=== PATIENT | male | born 1970 ===

== ENCOUNTER 2017-11-02 06:34 | Emergency (ER) | payer SELFPAY ==
[2017-11-02 06:34] VITALS: BMI 23.3
[2017-11-02 06:58] VITALS: BP 112/80; PULSE 90; RESP 18; TEMP 98; O2SAT 98
[2017-11-02] MEDS ORDERED: Naproxen 550 mg Tab PO STA (07:05)
--- NOTE | 2017-11-02 07:09 | ED PDOC ---
Arrival/HPI - General Chief Complaint: Lower Extremity Problem/Injury Time Seen by Provider: 11/02/17 07:00 Historian: Patient - History of Present Illness Narrative History of Present Illness (Text): 11/02/17 07:05 47 year old male, whose PMH includes knee sugery in 2012, who presents to the emergency department complaining of left knee pain since 3 years. Patient denies any trauma, falls, shortness of breath, fever or other complaints. Patient is also requesting a work note. Time/Duration: Other (3 years ) Symptom Onset: Gradual Symptom Course: Unchanged Context: Home Past Medical History - Provider Review Nursing Documentation Reviewed: Yes - Infectious Disease Hx of Infectious Diseases: None - Tetanus Immunization Tetanus Immunization: Unknown - Past Medical History Past Medical History: No Previous - Cardiac Hx Cardiac Disorders: No - Pulmonary Hx Respiratory Disorders: No - Neurological Hx Neurological Disorder: No - HEENT Hx HEENT Disorder: No - Renal Hx Renal Disorder: No - Endocrine/Metabolic Hx Endocrine Disorders: No - Hematological/Oncological Hx Blood Disorders: No - Integumentary Hx Dermatological Disorder: No - Musculoskeletal/Rheumatological Hx Musculoskeletal Disorders: Yes Other/Comment: right knee sx - Gastrointestinal Hx Gastrointestinal Disorders: Yes Other/Comment: hernia repair - Genitourinary/Gynecological Hx Genitourinary Disorders: No - Psychiatric Hx Psychophysiologic Disorder: No Hx Anxiety: No Hx Bipolar Disorder: No Hx Depression: No Hx Emotional Abuse: No Hx Hallucinations: No Hx Panic Disorder: No Hx Post Traumatic Stress Disorder: No Hx Physical Abuse: No Hx Schizophrenia: No Hx Sexual Abuse: No Hx Substance Use: No - Surgical History Hx Orthopedic Surgery: Yes (knee) Other/Comment: Hernia Surgery - Anesthesia Hx Anesthesia: Yes Hx Anesthesia Reactions: No Hx Malignant Hyperthermia: No - Suicidal Assessment Feels Threatened In Home Enviroment: No Family/Social History - Physician Review Nursing Documentation Reviewed: Yes Family/Social History: Unknown Family HX Smoking Status: Light Smoker < 10 Cigarettes Daily Hx Alcohol Use: Yes Frequency of alcohol use: Socially Hx Substance Use: No Hx Substance Use Treatment: No Allergies/Home Meds Allergies/Adverse Reactions: Allergies No Known Allergies Allergy (Verified 11/02/17 06:54) Review of Systems - Physician Review All systems were reviewed & negative as marked: Yes - Review of Systems Constitutional: absent: Fevers Respiratory: absent: SOB Musculoskeletal: Other (left knee pain ) Physical Exam Vital Signs Reviewed: Yes Vital Signs Temp Pulse Resp BP Pulse Ox 11/02/17 06:54 98.0 F 90 18 112/80 98 Temperature: Afebrile Blood Pressure: Normal Pulse: Regular Respiratory Rate: Normal Appearance: Positive for: Well-Appearing, Non-Toxic, Comfortable Pain Distress: None Mental Status: Positive for: Alert and Oriented X 3 - Systems Exam Head: Present: Atraumatic, Normocephalic Pupils: Present: PERRL Extroacular Muscles: Present: EOMI Conjunctiva: Present: Normal Lower Extremity: Present: Normal Inspection, NORMAL PULSES, Normal ROM, Neurovascularly Intact, Capillary Refill < 2 s. No: Edema, Cyanosis, Tenderness , Swelling, Erythema, Deformity, Temperature Abnormalties Neurological: Present: GCS=15, CN II-XII Intact, Speech Normal Skin: Present: Warm, Dry, Normal Color. No: Rashes Psychiatric: Present: Alert, Oriented x 3, Normal Insight, Normal Concentration Medical Decision Making ED Course and Treatment: 11/02/17 Impression: 47 year old male with unremarkable physical exam, complaining of left knee pain since 3 years ago with PMH of knee surgery. Plan: -- Anaprox -- Reassess and disposition Progress Notes: - Medication Orders Current Medication Orders: Discontinued Medications Naproxen (Anaprox Ds) 550 mg PO STAT STA Stop: 11/02/17 07:06 Last Admin: 11/02/17 07:21 Dose: 550 mg Re-Assess: JANICE Pain Assessment Document 11/02/17 07:49 [facility] (Rec: 11/02/17 07:49 [facility] [id number]) Pain Reassessment Is this a pain reassessment? No - Scribe Statement The provider has reviewed the documentation as recorded by the Scribe Jessica Cartagena Provider Scribe Attestation: All medical record entries made by the Scribe were at my direction and personally dictated by me. I have reviewed the chart and agree that the record accurately reflects my personal performance of the history, physical exam, medical decision making, and the department course for this patient. I have also personally directed, reviewed, and agree with the discharge instructions and disposition. Disposition/Present on Arrival - Present on Arrival Any Indicators Present on Arrival: No History of DVT/PE: No History of Uncontrolled Diabetes: No Urinary Catheter: No History of Decub. Ulcer: No History Surgical Site Infection Following: None - Disposition Have Diagnosis and Disposition been Completed?: Yes Diagnosis: Knee pain Disposition: HOME/ ROUTINE Disposition Time: 07:00 Condition: STABLE Discharge Instructions (ExitCare): Chronic Knee Pain Additional Instructions: return to er with worsening symptoms or concerns. please see specialist Prescriptions: Naproxen [Naprosyn] 500 mg PO BID PRN #14 tablet PRN Reason: Pain, Mild (1-3) Referrals: Con Caldwell MD [Medical Doctor] - Follow up with primary Forms: [employer] ([place]), WORK NOTE
== END 2017-11-02 07:49 | disposition home or self-care (01) ==
LOC: ED 06:34
DX: M25.562 Pain in left knee (principal)

== ENCOUNTER 2018-01-12 06:45 | Emergency (ER) | payer OTHER ==
[2018-01-12 06:45] VITALS: BMI 23.3
--- NOTE | 2018-01-12 07:37 | ED PDOC ---
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 ros (+) old hairline frcture in rt great toe in the past , denies any other concomitant joint pains. 01/12/18 07:34 Symptom Onset: Gradual Symptom Course: Improving Quality: Aching, Throbbing Past Medical History - Provider Review Nursing Documentation Reviewed: Yes - Infectious Disease Hx of Infectious Diseases: None - Tetanus Immunization Tetanus Immunization: Unknown - Past Medical History Past Medical History: No Previous - Cardiac Hx Cardiac Disorders: No - Pulmonary Hx Respiratory Disorders: No - Neurological Hx Neurological Disorder: No - HEENT Hx HEENT Disorder: No - Renal Hx Renal Disorder: No - Endocrine/Metabolic Hx Endocrine Disorders: No - Hematological/Oncological Hx Blood Disorders: No - Integumentary Hx Dermatological Disorder: No - Musculoskeletal/Rheumatological Hx Musculoskeletal Disorders: Yes Other/Comment: right knee sx - Gastrointestinal Hx Gastrointestinal Disorders: Yes Other/Comment: hernia repair - Genitourinary/Gynecological Hx Genitourinary Disorders: No - Psychiatric Hx Psychophysiologic Disorder: No Hx Anxiety: No Hx Bipolar Disorder: No Hx Depression: No Hx Emotional Abuse: No Hx Hallucinations: No Hx Panic Disorder: No Hx Post Traumatic Stress Disorder: No Hx Physical Abuse: No Hx Schizophrenia: No Hx Sexual Abuse: No Hx Substance Use: No - Surgical History Hx Orthopedic Surgery: Yes (knee) Other/Comment: Hernia Surgery - Anesthesia Hx Anesthesia: Yes Hx Anesthesia Reactions: No Hx Malignant Hyperthermia: No - Suicidal Assessment Feels Threatened In Home Enviroment: No Family/Social History - Physician Review Nursing Documentation Reviewed: Yes Family/Social History: No Known Family HX Smoking Status: Light Smoker < 10 Cigarettes Daily Hx Alcohol Use: Yes Hx Substance Use: No Hx Substance Use Treatment: No Allergies/Home Meds Allergies/Adverse Reactions: Allergies No Known Allergies Allergy (Verified 01/12/18 06:53) Review of Systems - Physician Review All systems were reviewed & negative as marked: Yes - Review of Systems Constitutional: Normal Eyes: Normal ENT: Normal Respiratory: Normal Cardiovascular: Normal Gastrointestinal: Normal Genitourinary Male: Normal Musculoskeletal: Arthralgias Skin: Normal Neurological: Normal Endocrine: Normal Hemo/Lymphatic: Normal Psychiatric: Normal Physical Exam Vital Signs Reviewed: Yes Vital Signs Temp Pulse Resp BP Pulse Ox 01/12/18 09:04 88 18 130/76 99 01/12/18 06:53 97.8 F 100 H 19 142/76 100 Temperature: Afebrile Blood Pressure: Normal Pulse: Regular Respiratory Rate: Normal Appearance: Positive for: Well-Appearing, Non-Toxic, Comfortable Pain Distress: None Mental Status: Positive for: Alert and Oriented X 3 - Systems Exam Head: Present: Atraumatic, Normocephalic Pupils: Present: PERRL Extroacular Muscles: Present: EOMI Conjunctiva: Present: Normal Mouth: Present: Moist Mucous Membranes Neck: Present: Normal Range of Motion Respiratory/Chest: Present: Clear to Auscultation, Good Air Exchange. No: Respiratory Distress, Accessory Muscle Use Cardiovascular: Present: Regular Rate and Rhythm, Normal S1, S2. No: Murmurs Abdomen: No: Tenderness, Distention, Peritoneal Signs Back: Present: Normal Inspection Upper Extremity: Present: Normal Inspection. No: Cyanosis, Edema Lower Extremity: Present: Other (rt great toe bunion, ttp , no relative calor, able to dorsi/plantar flex w/ full ROM. ). No: Edema Neurological: Present: GCS=15, CN II-XII Intact, Speech Normal, Motor Func Grossly Intact, Normal Sensory Function, Normal Cerebellar Funct, Norm Deep Tendon Reflexes, Gait Normal, Memory Normal, Normal 2Pt Descrimination Skin: Present: Warm, Dry, Normal Color. No: Rashes Psychiatric: Present: Alert, Oriented x 3, Normal Insight, Normal Concentration Medical Decision Making ED Course and Treatment: 47 y/o male p/w rt great toe x 2 months , reptitive use injury/sprain vs gout. (uric acid low suggestive of the former but nonspecific). xray : healed old frcature well calloused (old chronic fracture ) presump straight sole shoe prsunmptive gout treatment podiatry f/u discharge on indomethacin , steroid pulse course 01/12/18 09:20 - Lab Interpretations Lab Results: Lab Results 01/12/18 07:32: Uric Acid 3.3 L - RAD Interpretation Radiology Orders: 01/12/18 07:28 FOOT RIGHT GREAT TOE ROUTINE [RAD] Stat - Medication Orders Current Medication Orders: Discontinued Medications Famotidine (Pepcid) 20 mg PO STAT STA Stop: 01/12/18 07:30 Last Admin: 01/12/18 07:43 Dose: 20 mg Indomethacin (Indocin) 25 mg PO STAT STA Stop: 01/12/18 07:30 Last Admin: 01/12/18 07:57 Dose: 25 mg MAR Pain Assessment Document 01/12/18 07:57 [facility] (Rec: 01/12/18 07:58 [facility] [id number]) Pain Reassessment Is this a pain reassessment? No Sleep Is patient sleeping during reassessment? No Presence of Pain Presence of Pain Yes Pain Scale Used Pain Scale Used Numeric Location Left, Right or Bilateral Right Pain Location Body Site Foot Description Intensity of Pain at present 3 Prednisone (Prednisone Tab) 60 mg PO STAT ONE Stop: 01/12/18 07:31 Last Admin: 01/12/18 07:43 Dose: 60 mg Disposition/Present on Arrival - Present on Arrival Any Indicators Present on Arrival: No History of DVT/PE: No History of Uncontrolled Diabetes: No Urinary Catheter: No History of Decub. Ulcer: No History Surgical Site Infection Following: None - Disposition Have Diagnosis and Disposition been Completed?: Yes Diagnosis: Toe pain, right Disposition: HOME/ ROUTINE Disposition Time: 09:25 Patient Plan: Discharge Condition: GOOD Print Language: [place] Additional Instructions: You have a visualized old fracture in your right great toe that is well healed. You also have a bunion in that rt great toe . It is rather unclear at this time if you have a toe sprain vs newly exacerbated arthritis from the old fracture or mild gout attack. Take the pain medicine as ordered. Follow up with podiatry for further evaluatoin rest /ice/compression wrap and elevation can also help with pain ., . Prescriptions: Indomethacin [Indocin] 25 mg PO Q8 PRN #40 cap PRN Reason: Pain, Moderate (4-7) Prednisone [Deltasone] 40 mg PO DAILY #8 tablet Referrals: Vadim Cantu DPM [Staff Provider] - Follow up with primary Forms: [employer] (Setswana), WORK NOTE
[2018-01-12 09:04] VITALS: BP 130/76; PULSE 88; RESP 18; O2SAT 99
--- NOTE | 2018-01-12 09:30 | RAD ---
PROCEDURE: Right Foot Radiographs. HISTORY: rt great toe mtcp pain COMPARISON: None. FINDINGS: BONES: Normal. No fracture. JOINTS: Normal. SOFT TISSUES: Normal. OTHER FINDINGS: None. IMPRESSION: Normal right foot radiographs.
[2018-01-12 09:43] VITALS: TEMP 98
== END 2018-01-12 09:49 | disposition home or self-care (01) ==
LOC: ED 06:45
DX: M79.674 Pain in right toe(s) (principal)

== ENCOUNTER 2018-05-10 08:19 | Emergency (ER) | payer OTHER ==
[2018-05-10 08:20] VITALS: BMI 23.3
[2018-05-10 10:02] VITALS: TEMP 98.5
[2018-05-10 10:03] VITALS: RESP 18; O2SAT 100
--- NOTE | 2018-05-10 10:05 | ED PDOC ---
Arrival/HPI - History of Present Illness Narrative History of Present Illness (Text): 05/10/18 09:59 Pt is a 48 yo M with no significant pmhx who presents to the ED for R foot pain. He states that on Monday 05/07 he began to notice R foot pain located at the base of his foot near the metatarsal-phalangeal joints of the 2,3 and 4th digits. He states that he pain would get worse with extension of the toes especially while walking. He states that since Thursday the pain has been improving and is currently rated as a 5/10 in intensity. He states that a nurse told him he might have gout in the past but was never formally diagnosed. He currently denies any trauma to the area and states that the pain has improved enough for him to walk on his feet, with tolerable pain. Pmhx: Denies Pshx: Hernia 2003, L Knee ACL repair Meds: Denies All: NKDA Social: 2 cig/day, social etoh use and denies any illcit drug use Fam Hx: Denies <Alexia Quintero - Last Filed: 05/10/18 11:07> <David Pineda - Last Filed: 05/10/18 12:15> - General Chief Complaint: Lower Extremity Problem/Injury Time Seen by Provider: 05/10/18 08:25 Past Medical History - Provider Review Nursing Documentation Reviewed: Yes - Infectious Disease Hx of Infectious Diseases: None - Tetanus Immunization Tetanus Immunization: Unknown - Past Medical History Past Medical History: No Previous - Cardiac Hx Cardiac Disorders: No - Pulmonary Hx Respiratory Disorders: No - Neurological Hx Neurological Disorder: No - HEENT Hx HEENT Disorder: No - Renal Hx Renal Disorder: No - Endocrine/Metabolic Hx Endocrine Disorders: No - Hematological/Oncological Hx Blood Disorders: No - Integumentary Hx Dermatological Disorder: No - Musculoskeletal/Rheumatological Hx Musculoskeletal Disorders: Yes Hx Gout: Yes Other/Comment: right knee sx - Gastrointestinal Hx Gastrointestinal Disorders: Yes Other/Comment: hernia repair - Genitourinary/Gynecological Hx Genitourinary Disorders: No - Psychiatric Hx Psychophysiologic Disorder: No Hx Anxiety: No Hx Bipolar Disorder: No Hx Depression: No Hx Emotional Abuse: No Hx Hallucinations: No Hx Panic Disorder: No Hx Post Traumatic Stress Disorder: No Hx Physical Abuse: No Hx Schizophrenia: No Hx Sexual Abuse: No Hx Substance Use: No - Surgical History Hx Orthopedic Surgery: Yes (knee) Other/Comment: Hernia Surgery - Anesthesia Hx Anesthesia: Yes Hx Anesthesia Reactions: No Hx Malignant Hyperthermia: No - Suicidal Assessment Feels Threatened In Home Enviroment: No <Tatianna Quinteromad - Last Filed: 05/10/18 11:07> Family/Social History - Physician Review Nursing Documentation Reviewed: Yes Family/Social History: No Known Family HX Smoking Status: Light Smoker < 10 Cigarettes Daily Hx Alcohol Use: Yes Frequency of alcohol use: Socially Hx Substance Use: No Hx Substance Use Treatment: No <Leon,Hale - Last Filed: 05/10/18 11:07> Allergies/Home Meds <LeonAlexia gtz - Last Filed: 05/10/18 11:07> <David Pineda - Last Filed: 05/10/18 12:15> Allergies/Adverse Reactions: Allergies No Known Allergies Allergy (Verified 05/10/18 09:11) Home Medications: Home Meds Medication Instructions Recorded Confirmed No Known Home Med 05/10/18 05/10/18 Review of Systems - Physician Review All systems were reviewed & negative as marked: Yes - Review of Systems Constitutional: absent: Fevers Respiratory: absent: SOB, Cough Cardiovascular: absent: Chest Pain Gastrointestinal: absent: Abdominal Pain, Nausea, Vomiting Musculoskeletal: Arthralgias (admits to pain in the R 2, 3 and 4th metatarsal- phalangeal joints worse with extension.). absent: Back Pain, Neck Pain Neurological: absent: Headache <LeonRayoHale - Last Filed: 05/10/18 11:07> Physical Exam Appearance: Positive for: Well-Appearing, Non-Toxic Pain Distress: Mild Mental Status: Positive for: Alert and Oriented X 3 - Systems Exam Head: Present: Atraumatic, Normocephalic Pupils: Present: PERRL Extroacular Muscles: Present: EOMI Conjunctiva: Present: Normal Mouth: Present: Moist Mucous Membranes Respiratory/Chest: Present: Clear to Auscultation, Good Air Exchange. No: Respiratory Distress, Accessory Muscle Use, Wheezes, Rales, Rhonchi Cardiovascular: Present: Regular Rate and Rhythm, Normal S1, S2, Rub, Gallop. No: Murmurs Abdomen: Present: Normal Bowel Sounds. No: Tenderness, Distention, Peritoneal Signs, Rebound, Guarding Back: Present: Normal Inspection. No: CVA Tenderness, Midline Tenderness, Paraspinal Tenderness Lower Extremity: Present: Normal Inspection, Tenderness (with palpation of the plantar aspect of the metatarsal-phalangeal joints of the R foot and extension of the L 2nd, 3rd and 4th digits. Active and passive ROM are intact. No ankle or calcaneal tenderness upon palpation. Ankle ROM is intact.), Neurovascularly Intact, Capillary Refill < 2 s. No: Edema, CALF TENDERNESS, Justice's Sign, Swelling, Erythema, Deformity, Temperature Abnormalties Neurological: Present: GCS=15, Speech Normal Skin: Present: Warm, Dry, Normal Color. No: Rashes Psychiatric: Present: Alert, Oriented x 3, Normal Insight, Normal Concentration, Normal Affect, Normal Mood <Alexia Quintero - Last Filed: 05/10/18 11:07> Vital Signs Temp Pulse Resp BP Pulse Ox 05/10/18 08:20 98.5 F 73 18 111/82 100 - Systems Exam Lower Extremity: Present: Tenderness <David Pineda - Last Filed: 05/10/18 12:15> Medical Decision Making ED Course and Treatment: 05/10/18 10:10 Pt is a 48 yo M with no significant pmhx who presents for R foot pain. - R foot XR - Motrin - RAD Interpretation Radiology Orders: 05/10/18 09:27 FOOT RIGHT 3 VIEWS ROUTINE [RAD] Stat - Medication Orders Current Medication Orders: Discontinued Medications Ibuprofen (Motrin Tab) 600 mg PO STAT STA Stop: 05/10/18 09:29 <Alexia Quintero - Last Filed: 05/10/18 11:07> ED Course and Treatment: 05/10/18 12:08 Negative second mesa ankle and foot No warm to touch joints or cellulitis. No podagra: Unlikely gout- likely MSK pain Xray unremarkable. Pt remains in NAD with VSS. N/V intact. pain improved clear for d/c home - RAD Interpretation Radiology Orders: 05/10/18 09:27 FOOT RIGHT 3 VIEWS ROUTINE [RAD] Stat - Medication Orders Current Medication Orders: Discontinued Medications Ibuprofen (Motrin Tab) 600 mg PO STAT STA Stop: 05/10/18 09:29 Last Admin: 05/10/18 10:00 Dose: 600 mg MAR Pain/Vitals Document 05/10/18 10:00 [facility] (Rec: 05/10/18 10:00 EQ [id number]) Pain Reassessment Is This A Pain ReAssessment? No Sleep Is patient sleeping during reassessment? No Presence of Pain Presence of Pain Yes <David Pineda - Last Filed: 05/10/18 12:15> - PA / TIRE TECHNICIAN / Resident Statement MD/DO has examined the patient and agrees with the treatment plan. <David Pineda - Last Filed: 05/10/18 12:15> Disposition/Present on Arrival - Present on Arrival Any Indicators Present on Arrival: No History of DVT/PE: No History of Uncontrolled Diabetes: No Urinary Catheter: No History of Decub. Ulcer: No History Surgical Site Infection Following: None - Disposition Have Diagnosis and Disposition been Completed?: Yes <Rayo Quinterohammad - Last Filed: 05/10/18 11:07> - Disposition Disposition Time: 12:06 <David Pineda - Last Filed: 05/10/18 12:15> - Disposition Diagnosis: Foot pain Disposition: HOME/ ROUTINE Patient Problems: Current Active Problems Problem Status Onset Foot pain Acute Condition: GOOD Discharge Instructions (ExitCare): Muscle and Bone Pain (DC) Additional Instructions: KATERINA VENTURA, thank you for letting us take care of you today. Your provider was David Pineda and you were treated for right foot pain. The emergency medical care you received today was directed at your acute symptoms. If you were prescribed any medication, please fill it and take as directed. It may take several days for your symptoms to resolve. Return to the Emergency Department if your symptoms worsen, do not improve, or if you have any other problems. Please contact your doctor or call one of the physicians/clinics you have been referred to that are listed on the Patient Visit Information form that is included in your discharge packet. Bring any paperwork you were given at discharge with you along with any medications you are taking to your follow up visit. Our treatment cannot replace ongoing medical care by a primary care provider outside of the emergency department. Thank you for allowing the [facility] team to be part of your care today. If you had an X-Ray or CT scan: A Radiologist will review the ED reading if any change in treatment is needed we will contact you. If you had a blood, urine, or wound culture: It will take several days for the results, if any change in treatment is needed we will contact you. If you had an STI test: It will take 48 hours for the results. Please call after 1 week if you have not heard back. Referrals: FAMILY PROVIDER,NO [Primary Care Provider] - Follow up with primary Celestina Bello MD [Medical Doctor] - Follow up with primary Mary Linares DPM [Staff Provider] - Follow up with primary Forms: [employer] ([place]akh), WORK NOTE
--- NOTE | 2018-05-10 12:07 | RAD ---
Date of service: 05/10/2018 PROCEDURE: Right Foot Radiographs. HISTORY: R foot pain COMPARISON: None. FINDINGS: BONES: Normal. No fracture. JOINTS: Mild hallux valgus. No evidence of arthritis. Joint spaces and articular surfaces are preserved. SOFT TISSUES: Normal. OTHER FINDINGS: None. IMPRESSION: Mild hallux valgus. Otherwise unremarkable.
[2018-05-10 13:04] VITALS: BP 125/72; PULSE 85
== END 2018-05-10 12:15 | disposition home or self-care (01) ==
LOC: ED 08:19
DX: M79.671 Pain in right foot (principal)

== ENCOUNTER 2018-05-28 07:11 | Emergency (ER) | payer OTHER ==
[2018-05-28 07:11] VITALS: BMI 23.3
[2018-05-28] MEDS ORDERED: Lidocaine 5% Patch TD ONE (07:50)
--- NOTE | 2018-05-28 07:51 | ED PDOC ---
Arrival/HPI - General Chief Complaint: Hip Pain Time Seen by Provider: 05/28/18 07:22 Historian: Patient - History of Present Illness Narrative History of Present Illness (Text): 05/28/18 07:44 A 48 year old male, whose past medical history includes Lyme Disease, presents to the emergency department with a complaint of 3 day duration right hip pain. 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 The patient notes that at times the right hip pain radiates towards his groin. He reports that he has experienced these symptoms in the past, but it only lasted for about a day. The patient notes that he took Advil prior to going to bed, but is unsure if it relieved his symptoms. The patient states that the pain is exacerbated with movement and laying flat. The patient denies fevers, chills, headache, dizziness, chest pain, shortness of breath, dyspnea on exertion, cough, abdominal pain, nausea, vomiting, diarrhea, back pain, neck pain, urinary/bowel changes, or any other complaint. PMD: None Time/Duration: Other (3 Days) Symptom Onset: Sudden Symptom Course: Unchanged Activities at Onset: Rest, Light Context: Home Past Medical History - Provider Review Nursing Documentation Reviewed: Yes - Infectious Disease Hx of Infectious Diseases: None - Tetanus Immunization Tetanus Immunization: Unknown - Past Medical History Past Medical History: No Previous - Cardiac Hx Cardiac Disorders: No - Pulmonary Hx Respiratory Disorders: No - Neurological Hx Neurological Disorder: No - HEENT Hx HEENT Disorder: No - Renal Hx Renal Disorder: No - Endocrine/Metabolic Hx Endocrine Disorders: No - Hematological/Oncological Hx Blood Disorders: No - Integumentary Hx Dermatological Disorder: No - Musculoskeletal/Rheumatological Hx Musculoskeletal Disorders: Yes Hx Gout: Yes Other/Comment: right knee sx - Gastrointestinal Hx Gastrointestinal Disorders: Yes Other/Comment: hernia repair - Genitourinary/Gynecological Hx Genitourinary Disorders: No - Psychiatric Hx Psychophysiologic Disorder: No Hx Anxiety: No Hx Bipolar Disorder: No Hx Depression: No Hx Emotional Abuse: No Hx Hallucinations: No Hx Panic Disorder: No Hx Post Traumatic Stress Disorder: No Hx Physical Abuse: No Hx Schizophrenia: No Hx Sexual Abuse: No Hx Substance Use: No - Surgical History Hx Orthopedic Surgery: Yes (knee) Other/Comment: Hernia Surgery - Anesthesia Hx Anesthesia: Yes Hx Anesthesia Reactions: No Hx Malignant Hyperthermia: No - Suicidal Assessment Feels Threatened In Home Enviroment: No Family/Social History - Physician Review Nursing Documentation Reviewed: Yes Family/Social History: No Known Family HX Smoking Status: Light Smoker < 10 Cigarettes Daily Hx Alcohol Use: Yes Hx Substance Use: No Hx Substance Use Treatment: No Allergies/Home Meds Allergies/Adverse Reactions: Allergies No Known Allergies Allergy (Verified 05/10/18 09:11) Review of Systems - Physician Review All systems were reviewed & negative as marked: Yes - Review of Systems Constitutional: absent: Fevers ENT: absent: Sore Throat Respiratory: absent: SOB, Cough Cardiovascular: absent: Chest Pain Gastrointestinal: absent: Abdominal Pain, Stool Changes, Nausea, Vomiting Genitourinary Male: absent: Urinary Output Changes Musculoskeletal: Other (Right Hip Pain). absent: Back Pain, Neck Pain Neurological: absent: Headache, Dizziness Physical Exam Vital Signs Reviewed: Yes Vital Signs Temp Pulse Resp BP Pulse Ox 05/28/18 07:23 98.0 F 80 18 129/75 96 Temperature: Afebrile Blood Pressure: Normal Pulse: Regular Respiratory Rate: Normal Appearance: Positive for: Well-Appearing, Non-Toxic, Comfortable Pain Distress: None Mental Status: Positive for: Alert and Oriented X 3 - Systems Exam Head: Present: Atraumatic, Normocephalic Pupils: Present: PERRL Extroacular Muscles: Present: EOMI Conjunctiva: Present: Normal Mouth: Present: Moist Mucous Membranes Neck: Present: Normal Range of Motion Respiratory/Chest: Present: Clear to Auscultation, Good Air Exchange. No: Respiratory Distress, Accessory Muscle Use Cardiovascular: Present: Regular Rate and Rhythm, Normal S1, S2. No: Murmurs Abdomen: No: Tenderness, Distention, Peritoneal Signs Back: Present: Normal Inspection. No: CVA Tenderness, Paraspinal Tenderness, Pain with Leg Raise Upper Extremity: Present: Normal Inspection. No: Cyanosis, Edema Lower Extremity: Present: Tenderness (Pain with flexion of the right knee and extension of the right hip. ) Neurological: Present: GCS=15, CN II-XII Intact, Speech Normal Skin: Present: Warm, Dry, Normal Color. No: Rashes Psychiatric: Present: Alert, Oriented x 3, Normal Insight, Normal Concentration Medical Decision Making ED Course and Treatment: 05/28/18 07:52 Impression: A 48 year old male presents to the emergency department with a complaint of 3 day duration right hip pain. Differential Diagnosis included but are not limited to: Fracture Dislocation Sciatica Impinged Nerve Plan: --Right Hip X- Ray --Valium --Toradol --Lidoderm -- Reassess and disposition Progress Notes: 05/28/18 0900 XR of thigh unremarkable. Patient reassessed and reports improvement in symptoms after analgesia. Shared decision making with patient to follow up with an orthopedic surgeon outpatient and return protocol for the resurgence of symptoms provided. Scripts provided. Patient is stable for discharge. - Scribe Statement The provider has reviewed the documentation as recorded by the Scribe Karla Motley Provider Scribe Attestation: All medical record entries made by the Scribe were at my direction and personally dictated by me. I have reviewed the chart and agree that the record accurately reflects my personal performance of the history, physical exam, medical decision making, and the department course for this patient. I have also personally directed, reviewed, and agree with the discharge instructions and disposition. Disposition/Present on Arrival - Present on Arrival Any Indicators Present on Arrival: No History of DVT/PE: No History of Uncontrolled Diabetes: No Urinary Catheter: No History of Decub. Ulcer: No History Surgical Site Infection Following: None - Disposition Have Diagnosis and Disposition been Completed?: Yes Diagnosis: Hip pain Disposition: HOME/ ROUTINE Disposition Time: 09:08 Patient Plan: Discharge Condition: STABLE Discharge Instructions (ExitCare): Hip Pain (DC) Print Language: TANZANIAN Additional Instructions: All medical record entries made by the Scribe were at my direction and personally dictated by me. I have reviewed the chart and agree that the record accurately reflects my personal performance of the history, physical exam, medical decision making, and the department course for this patient. I have also personally directed, reviewed, and agree with the discharge instructions and disposition. Prescriptions: Cyclobenzaprine [Cyclobenzaprine HCl] 10 mg PO PRN PRN #6 tab PRN Reason: Muscle Spasm Lidocaine 5% [Lidoderm] 1 ea TD Q12H 5 Days #5 patch RX: Naproxen 500 mg PO BID 5 Days #10 tab Referrals: Queta Stafford MD [Staff Provider] - Follow up with primary [facility] [place] - Follow up with primary Celestina Bello MD [Medical Doctor] - Follow up with primary Forms: [employer] (Japanese), WORK NOTE
[2018-05-28 09:20] VITALS: BP 122/74; PULSE 81; RESP 17; TEMP 98.3; O2SAT 99
--- NOTE | 2018-05-28 09:45 | RAD ---
PROCEDURE: Right Hip and pelvis radiographs. HISTORY: hip pain COMPARISON: None. FINDINGS: BONES: Normal. No fracture. JOINTS: Normal. SOFT TISSUES: Normal. OTHER FINDINGS: None. IMPRESSION: Normal radiographs of right hip.
== END 2018-05-28 09:20 | disposition home or self-care (01) ==
LOC: ED 07:11
DX: M25.551 Pain in right hip (principal); F17.210 Nicotine dependence, cigarettes, uncomplicated
CPT/HCPCS: 73502; 96372; 99282; J1885

== ENCOUNTER 2018-07-23 07:09 | Emergency (ER) | payer OTHER ==
[2018-07-23 07:10] VITALS: BMI 23.3
[2018-07-23 07:38] VITALS: RESP 18
--- NOTE | 2018-07-23 08:21 | ED PDOC ---
Arrival/HPI - General Chief Complaint: Lower Extremity Problem/Injury Time Seen by Provider: 07/23/18 07:23 Historian: Patient - History of Present Illness Narrative History of Present Illness (Text): 07/23/18 08:18 48 y/o M, with past medical history of left knee ACL repair and left knee meniscus repair, presents to the ED complaining of worsening left knee pain since 1 week. Patient describes a shooting pain which lasts for few seconds but does not interfere with ambulation. Patient informs extensive exertion of the knee at work but denies any recent trauma or injury to the site. Patient informs taking Advil and application of pain patch with no improvement to symptoms. Patient denies any other associated somatic complaints. Patient denies any fevers, chills, headache, dizziness, chest pain, shortness of breath, dyspnea on exertion, cough, abdominal pain, nausea, vomiting, diarrhea, back pain, neck pain, discoloration of skin, lower extremity swelling or any other complaints. Time/Duration: 1 week Symptom Onset: Gradual Symptom Course: Unchanged Activities at Onset: Light Context: Home Past Medical History - Provider Review Nursing Documentation Reviewed: Yes - Infectious Disease Hx of Infectious Diseases: None - Tetanus Immunization Tetanus Immunization: Unknown - Past Medical History Past Medical History: No Previous - Cardiac Hx Cardiac Disorders: No - Pulmonary Hx Respiratory Disorders: No - Neurological Hx Neurological Disorder: No - HEENT Hx HEENT Disorder: No - Renal Hx Renal Disorder: No - Endocrine/Metabolic Hx Endocrine Disorders: No - Hematological/Oncological Hx Blood Disorders: No - Integumentary Hx Dermatological Disorder: No - Musculoskeletal/Rheumatological Hx Musculoskeletal Disorders: Yes Hx Gout: Yes Other/Comment: right knee sx - Gastrointestinal Hx Gastrointestinal Disorders: Yes Other/Comment: hernia repair - Genitourinary/Gynecological Hx Genitourinary Disorders: No - Psychiatric Hx Psychophysiologic Disorder: No Hx Substance Use: No - Surgical History Hx Orthopedic Surgery: Yes (knee) Other/Comment: Hernia Surgery - Anesthesia Hx Anesthesia: Yes Hx Anesthesia Reactions: No Hx Malignant Hyperthermia: No - Suicidal Assessment Feels Threatened In Home Enviroment: No Family/Social History - Physician Review Nursing Documentation Reviewed: Yes Family/Social History: Unknown Family HX Smoking Status: Light Smoker < 10 Cigarettes Daily Hx Alcohol Use: Yes Hx Substance Use: No Hx Substance Use Treatment: No Allergies/Home Meds Allergies/Adverse Reactions: Allergies No Known Allergies Allergy (Verified 05/10/18 09:11) Review of Systems - Physician Review All systems were reviewed & negative as marked: Yes - Review of Systems Constitutional: absent: Fevers Respiratory: absent: SOB, Cough Cardiovascular: absent: Chest Pain Gastrointestinal: absent: Abdominal Pain, Diarrhea, Nausea, Vomiting Genitourinary Male: absent: Dysuria, Urinary Output Changes Musculoskeletal: Arthralgias (left knee pain). absent: Back Pain, Neck Pain Skin: absent: Rash Neurological: absent: Headache, Dizziness Physical Exam Vital Signs Reviewed: Yes Vital Signs Temp Pulse Resp BP Pulse Ox 07/23/18 07:10 98.4 F 68 18 117/56 L 100 Temperature: Afebrile Blood Pressure: Normal Pulse: Regular Respiratory Rate: Normal Appearance: Positive for: Well-Appearing, Non-Toxic, Comfortable Pain Distress: None Mental Status: Positive for: Alert and Oriented X 3 - Systems Exam Head: Present: Atraumatic, Normocephalic Pupils: Present: PERRL Extroacular Muscles: Present: EOMI Conjunctiva: Present: Normal Respiratory/Chest: Present: Clear to Auscultation, Good Air Exchange. No: Respiratory Distress, Accessory Muscle Use Cardiovascular: Present: Regular Rate and Rhythm, Normal S1, S2. No: Murmurs Abdomen: No: Tenderness, Distention, Peritoneal Signs Upper Extremity: Present: Normal Inspection. No: Cyanosis, Edema Lower Extremity: Present: NORMAL PULSES (popliteal pulse felt to left lower extremity), Normal ROM (Clicking noise with flexion and extension of left knee), Capillary Refill < 2 s, Other (No ecchymosis noted.). No: Edema, Swelling, Erythema Neurological: Present: GCS=15, CN II-XII Intact, Speech Normal Skin: Present: Warm, Dry, Normal Color. No: Rashes Psychiatric: Present: Alert, Oriented x 3, Normal Insight, Normal Concentration Medical Decision Making ED Course and Treatment: 07/23/18 08:16 Impression: 48 year old male presents to the ED complaining of left knee pain. Differential Diagnosis included but are not limited to: -- Tendinitis -- Patella-femoral syndrome -- Partial tear of the meniscus -- Knee sprain Plan: -- Toradol -- Reassess and disposition Prior Visits: Notes and results from previous visits were reviewed. Progress Notes: - Medication Orders Current Medication Orders: Ketorolac Tromethamine (Toradol) 60 mg IM STAT STA Stop: 07/23/18 08:17 - Scribe Statement The provider has reviewed the documentation as recorded by the Scribe Eric Funk. All medical record entries made by the Scribe were at my direction and personally dictated by me. I have reviewed the chart and agree that the record accurately reflects my personal performance of the history, physical exam, medical decision making, and the department course for this patient. I have also personally directed, reviewed, and agree with the discharge instructions and disposition. Disposition/Present on Arrival - Present on Arrival History of DVT/PE: No History of Uncontrolled Diabetes: No Urinary Catheter: No History of Decub. Ulcer: No History Surgical Site Infection Following: None - Disposition Diagnosis: Knee pain, left Patient Problems: Current Active Problems Problem Status Onset Knee pain, left Acute Discharge Instructions (ExitCare): Patellofemoral Pain (DC), Knee Pain (DC) Print Language: GEORGIAN Additional Instructions: All medical record entries made by the Scribe were at my direction and personally dictated by me. I have reviewed the chart and agree that the record accurately reflects my personal performance of the history, physical exam, medical decision making, and the department course for this patient. I have also personally directed, reviewed, and agree with the discharge instructions and disposition. Please do not operate any heavy machinery for FOUR HOURS after taking Motrin Please follow up with the orthopedic surgeon for referral for outpatient MRI Prescriptions: Cyclobenzaprine [Cyclobenzaprine HCl] 10 mg PO Q8H #6 tab oxyCODONE/Acetaminophen [Percocet 5/325 mg Tab] 1 ea PO PRN PRN #6 tab PRN Reason: Pain, Severe (8-10) Referrals: Misha Middleton DO [Staff Provider] - Follow up with primary Con Caldwell MD [Staff Provider] - Follow up with primary Forms: [employer] (Swedish), WORK NOTE
[2018-07-23 10:00] VITALS: BP 123/69; PULSE 72; TEMP 98; O2SAT 98
== END 2018-07-23 09:00 | disposition home or self-care (01) ==
LOC: ED 07:09
DX: M25.562 Pain in left knee (principal); F17.210 Nicotine dependence, cigarettes, uncomplicated
CPT/HCPCS: 96372; 99283; J1885